=== PATIENT | female | born 1995 | race Caucasian/White ===

== ENCOUNTER 2016-12-02 12:53 | Emergency (ER) | payer OTHER, BC ==
[~2016-12-02] VITALS: Ht 149.9 cm; Wt 40.6 kg
[~2016-12-02 12:53] MED LIST: ALPR1TAB3 PO; AMPH20CA3 PO
[2016-12-02 13:03] VITALS: TEMP 36.8; Ht 149.9 cm; Wt 40.6 kg
[2016-12-02] MEDS ORDERED: AMPH25CA PO (14:03)
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
[2016-12-02 14:17] VITALS: BP 109/77; PULSE 72; O2SAT 99
== END 2016-12-02 14:17 | disposition home or self-care (01) ==
LOC: C.EDB 12:54 → C.EDD 14:17
DX: Z48.02 Encounter for removal of sutures (principal); F90.9 Attention-deficit hyperactivity disorder, unspecified type; Z79.899 Other long term (current) drug therapy

== ENCOUNTER 2016-12-30 02:45 | Emergency (ER) | payer BC, OTHER ==
[~2016-12-30] VITALS: Ht 149.9 cm; Wt 41.0 kg
[~2016-12-30 02:45] MED LIST changes: -ALPR1TAB3 PO; -AMPH20CA3 PO; +AMPH25CA PO
[2016-12-30 02:48] VITALS: TEMP 36.5; Ht 149.9 cm; Wt 41.0 kg
[2016-12-30] MEDS ORDERED: SULFAMETHOXAZOLE/TRIMETHOPRIM DS 800/160MG TAB PO STA (03:20)
[2016-12-30] MEDS ORDERED: SULF800T23 PO (03:29)
--- NOTE | 2016-12-30 03:29 | EMERGENCY ROOM VISIT NOTE ---
ED Visit Note First contact with patient: 02:55 Chief Complaint: Sever UTI, Blood in Urine, Back Pain History of Present Illness: Patient is a 21-year-old female who presents to the emergency Department this morning for evaluation of UTI symptoms. She reports having dysuria and burning with urination on Tuesday of last week. She was using Uricalm and Azo with complete resolve symptoms. This evening, after shower, she developed return of burning with urination and urinary frequency. She's had some low back discomfort. The patient took the medications without relief. She rates her current discomfort as a 10/10. She denies any fevers, chills, abdominal pain, nausea, or vomiting. She denies any chance for . She denies any vaginal discharge or drainage. Medications: Reviewed in discussed with the patient. Allergies: No known allergies. PMH: No pertinent past medical history. 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 ROS: All pertinent positive and negative review of systems are appropriately documented in the History of Present Illness. Physical Exam: VITAL SIGNS - Vital signs and Nursing Notes were reviewed. GENERAL -21-year-old female, well-developed, well-nourished, and in no acute distress. ABDOMEN - Abdomen soft and nontender to palpation. Bowel sounds normoactive all 4 quadrants. No CVA tenderness to percussion. NEURO - Patient is A&Ox3 and communicates appropriately with the provider. ED Course: Patient was seen and evaluated by myself. Urine dip was unable to be achieved secondary to urine staining from Azo. Patient was symptomatically treated with Bactrim. Urinalysis and urine culture are pending. The patient was instructed on following up [facility] health services from today's visit. The patient was educated on worrisome symptoms for return visit to the emergency department. Patient discharged home afebrile and in good condition. In the evaluation and treatment of this patient, the following differential diagnoses were considered: Bladder Cancer, Chlamydial Genitourinary Infection, Cystitis, Herpes Simplex, Interstitial Cystitis, PID, Pyelonephritis, Urethritis , or Vaginitis. Impression: UTI, Dysuria Discharge Instructions: You have been treated in the Emergency Department for a Urinary Tract Infection (UTI). You have been prescribed Bactrim to be taken as prescribed. This is an antibiotic. All antibiotics have the potential to cause diarrhea. Stop this medication and contact a medical provider if you were to develop any significant adverse side effects including: wheezing, shortness of breath, passing out, vomiting, or a diffuse rash. Always take antibiotics as directed and COMPLETE the ENTIRE course regardless of the improvement of your symptoms. Drink plenty of water and stay well hydrated. For pain control, you can use the following [id number] medicines (if >12 yo): - Regular strength (325mg/tab) Tylenol (acetaminophen) 2 tabs every 4-6 hours as needed. Do not exceed 12 tablets in a 24 hour period. Avoid taking more than 4 grams (4000 mg) of Tylenol per day. This includes any other sources of acetaminophen you may take on a regular basis. - Regular strength (200 mg/tab) Advil (ibuprofen) 1-2 tabs every 4-6 hours as needed. Do not exceed a dose of 3200 mg per day. As with any trip to the Emergency Department, you should follow-up with your Primary Care Provider from today's visit. Return to the emergency department if your symptoms persist despite treatment plan outlined above or if the following symptoms occur: increased fevers, chills , low back pain, nausea/vomiting, or blood in your urine. Problem List Medical Problems: (1) ADD (attention deficit disorder) Status: Chronic Current/Historical Medications Scheduled Amphetamine-Dextroamphetamine 25MG (Adderall Xr 25MG), 25 MG PO DAILY Sulfa/Trimethoprim (Bactrim Ds 800MG/160MG), 1 TAB PO BID Scheduled PRN Alprazolam (Xanax), 1 MG PO DAILY PRN for Anxiety Allergies Coded Allergies: No Known Allergies (Unverified , 12/30/16) Vital Signs Date Time Temp Pulse Resp B/P Pulse Ox O2 Delivery O2 Flow Rate FiO2 12/30/16 04:06 103 18 140/77 98 12/30/16 02:48 36.5 121 20 138/96 97 Room Air Laboratory Results Test 12/30/16 02:55 Urine Color ORANGE Urine Appearance SLIGHTLY CLOUDY (CLEAR) Urine pH (4.5-7.5) Urine Specific [place] (1.000-1.030) Urine Protein POS (NEG) Urine Glucose (UA) (NEG) Urine Ketones (NEG) Urine Occult Blood (NEG) Urine Nitrite (NEG) Urine Bilirubin (NEG) Urine Urobilinogen (NEG) Urine Leukocyte Esterase (NEG) Urine RBC 0-4 /hpf (0-4) Urine WBC >30 /hpf (0-5) Urine Epithelial Cells 5-10 /lpf (0-5) Urine Bacteria NEG (NEG) Medications Administered Medications (Trade) Dose Ordered Sig/Noe Route Start Time Stop Time Status Last Admin Dose Admin Trimethoprim/ Sulfamethoxazole (Septra Ds 800/ 160MG Tab) 1 tab NOW STAT PO 12/30/16 03:20 12/30/16 03:21 DC 12/30/16 04:09 1 TAB Trimethoprim/ Sulfamethoxazole (Sulfameth/ Trimeth Ds 800/ 160MG Home Pack) 1 homepack UD ONCE PO 12/30/16 03:30 12/30/16 03:31 DC 12/30/16 04:10 1 HOMEPACK Departure Information Impression Primary Impression: Urinary tract infection Additional Impression: Dysuria Dispostion Home / Self-Care Condition GOOD Prescriptions Sulfa/Trimethoprim (Bactrim Ds 800MG/160MG) Tab 1 TAB PO BID for 5 Days, #10 TAB Prov: Ivan Shaver, CHANA 12/30/16 Referrals [facility] (PCP) Patient Instructions ED UTI Cystitis Female, My [facility] Additional Instructions You have been treated in the Emergency Department for a Urinary Tract Infection (UTI). You have been prescribed Bactrim to be taken as prescribed. This is an antibiotic. All antibiotics have the potential to cause diarrhea. Stop this medication and contact a medical provider if you were to develop any significant adverse side effects including: wheezing, shortness of breath, passing out, vomiting, or a diffuse rash. Always take antibiotics as directed and COMPLETE the ENTIRE course regardless of the improvement of your symptoms. Drink plenty of water and stay well hydrated. For pain control, you can use the following [id number] medicines (if >12 yo): - Regular strength (325mg/tab) Tylenol (acetaminophen) 2 tabs every 4-6 hours as needed. Do not exceed 12 tablets in a 24 hour period. Avoid taking more than 4 grams (4000 mg) of Tylenol per day. This includes any other sources of acetaminophen you may take on a regular basis. - Regular strength (200 mg/tab) Advil (ibuprofen) 1-2 tabs every 4-6 hours as needed. Do not exceed a dose of 3200 mg per day. As with any trip to the Emergency Department, you should follow-up with your Primary Care Provider from today's visit. Return to the emergency department if your symptoms persist despite treatment plan outlined above or if the following symptoms occur: increased fevers, chills , low back pain, nausea/vomiting, or blood in your urine. Problem Qualifiers Primary Impression: Urinary tract infection Urinary tract infection type: acute cystitis Hematuria presence: with hematuria Qualified Codes: N30.01 - Acute cystitis with hematuria
[2016-12-30] MEDS ORDERED: SEPTRA DS HOME PACK 1 EA VIAL PO ONE (03:30)
[2016-12-30 03:59] LABS: MANUAL MICROSCOPIC REQUIRED? YES; REVIEW REQ? NO; SULFASALICYLIC ACID POS (NEG); URINE APPEARANCE SLIGHTLY CLOUDY (CLEAR); URINE COLOR ORANGE
[2016-12-30 04:01] LABS: URINE RBC 0-4 /hpf (0-4); URINE WBC >30 /hpf (0-5)
[2016-12-30 04:02] LABS: URINE BACTERIA NEG (NEG); ZZUR CULT IF INDIC CLEAN CATCH YES
[2016-12-30] MEDS ORDERED: ALPR1TAB3 PO (04:03)
[2016-12-30 04:06] VITALS: BP 140/77; PULSE 103; O2SAT 98
== END 2016-12-30 04:06 | disposition home or self-care (01) ==
LOC: C.EDB 02:46
DX: N39.0 Urinary tract infection, site not specified (principal); F90.9 Attention-deficit hyperactivity disorder, unspecified type; Z79.899 Other long term (current) drug therapy